=== PATIENT | female | born 1975 | race Caucasian/White ===

== ENCOUNTER → 2016-11-11 | Outpatient (CLI) | payer BC ==
[~2016-11-11] MED LIST: GABA-112 PO; IBUP-103 PO; NRN400 PO; NRN600 PO
== END | disposition home or self-care (01) ==
LOC: C.PAPS 11:36
PROVIDERS: ATTEND Obstetrics & Gynecology
DX: Z01.419 Encounter for gynecological examination (general) (routine) without abnormal findings (principal)